=== PATIENT | female | born 1980 | race Caucasian/White ===

== ENCOUNTER → 2018-11-25 10:15 | Outpatient (CLI) | payer OTHER, SELFPAY ==
--- NOTE | 2018-11-25 10:17 | DI.US.S_ITS ---
PROCEDURE: US PELVIC COMPLETE INDICATIONS: IUD STRINGS NOT FOUND TECHNIQUE: Real-time scanning was performed of the pelvic organs, with image documentation. Additional endovaginal scanning was necessary due to incomplete visualization of the adnexal and endometrial structures by transabdominal scanning. COMPARISON: None. FINDINGS: Transabdominal scanning: Limited scanning through the kidneys shows no hydronephrosis. No pathologic free abdominal or pelvic fluid. Endovaginal scanning: Uterus: Uterus is normal in size at 6.8 x 3.4 x 4.4 cm. The endometrium thickness was not measured. There is an intrauterine device identified within the endometrial cavity and an appropriately placed. Ovaries: Right ovary measures 2.9 x 1.1 x 2.8 cm. Left ovary measures 2.7 x 1.8 x 1.8 cm. There is a heterogeneously hypoechoic cystic lesion within the left ovary measuring 1.6 cm. There is mild peripheral vascularity. IMPRESSION: 1. An intrauterine device is noted within the endometrial cavity. 2. A 1.6 cm hypoechoic lesion within the left ovary which may represent a complicated/hemorrhagic cyst versus endometrioma. Recommend followup pelvic ultrasound in 6-12 months to document continued stability versus resolution. Dictated by: Marquez Cortez M.D. on 11/25/2018 at 14:35 Approved by: Marquez Cortez M.D. on 11/25/2018 at 15:18
== END ==
PROVIDERS: PCP Nurse Practitioner Family; Visit Provider Nurse Practitioner Family
DX: T83.32XA Displacement of intrauterine contraceptive device, initial encounter (principal); N83.9 Noninflammatory disorder of ovary, fallopian tube and broad ligament, unspecified
CPT/HCPCS: 76830; 76856